=== PATIENT | male | born 1970 | race Caucasian/White ===

== ENCOUNTER 2020-08-09 21:20 | Inpatient (IN) ==
[2020-08-09 21:59] LABS: Basophils % 0.5 %; Eosinophils # 0.3 K/mcL (0.0-0.6); Eosinophils % 3.6 %; Hematocrit 43.5 % (37.5-50.1); Hemoglobin 14.4 g/dL (12.9-16.9); Immature Granulocytes % 0.6 % (0-4); Lymphocytes # 2.4 K/mcL (0.6-4.6); Lymphocytes % 27.7 %; Mean Corpuscular HGB Conc 33.1 g/dL (31.6-35.5); Mean Corpuscular Hemoglobin 30.2 pg (28.0-33.3); Mean Corpuscular Volume 91.2 fL (83.0-100.0); Mean Platelet Volume 9.9 fL (9.4-12.4); Monocytes # 0.7 K/mcL (0.0-1.3); Monocytes % 7.8 %; Neutrophils # 5.2 K/mcL (1.6-8.9); Platelet Count 333 K/mcL (140-400); Red Blood Count 4.77 M/mcL (4.19-5.50); Red Cell Distribution Width 13.6 % (11.5-14.5); Segmented Neutrophils % 59.8 %; White Blood Count 8.6 K/mcL (4.3-11.1)
[2020-08-09 22:18] LABS: Acetaminophen < 10 mcg/mL (10-20); BUN/Creatinine Ratio 19 (6-26); Blood Urea Nitrogen 20 mg/dL (6-20); Calcium 9.1 mg/dL (8.6-10.3); Carbon Dioxide 27 mEq/L (23-29); Chloride 106 mEq/L (98-107); Chol/HDL Ratio 3.2 (0-4.9); Cholesterol 184 mg/dL (< 200); Ethanol < 10 mg/dL (Less than 10); Glucose 137 mg/dL (70-105); HDL Cholesterol 58 mg/dL (40-59); LDL Cholesterol,Calculated 102 mg/dL (< 100); Osmolality,Calculated 293 (280-300); Potassium 3.8 mEq/L (3.5-5.1); Salicylate < 2.5 mg/dL (15.0-30.0); Sodium 139 mEq/L (136-145); Triglycerides 118 mg/dL (< 150); eGFR For African Americans > 60 (> 60); eGFR For Non-African Americans > 60 (> 60)
[2020-08-09 22:39] LABS: Bilirubin,Urine Negative (Negative); Blood,Urine Negative (Negative); Clarity,Urine Clear (Clear); Color,Urine Yellow (Yellow); Glucose,Urine (UA) 70 mg/dL (Normal); Ketones,Urine Negative (Negative); Leukocyte Esterase,Urine Trace (Negative); Nitrite,Urine Negative (Negative); Protein,Urine Trace mg/dL (Neg-Trace); RBC,Urine 0-3 per hpf (0-3); Specific Gravity,Urine > 1.030 (1.010-1.025); Squamous Epithelial Cell,Urine Few per hpf (None-Few); WBC,Urine 15-30 per hpf (0-3)
[2020-08-09 23:09] LABS: Amphetamine Screen,Urine Positive ng/mL (Cutoff=1000); Barbiturate Screen,Urine Negative ng/mL (Cutoff=200); Benzodiazepines Screen,Urine Negative ng/mL (Cutoff=200); Cannabinoid Screen,Urine Positive ng/mL (Cutoff = 50); Cocaine Screen,Urine Negative ng/mL (Cutoff= 300); Opiate Screen,Urine Negative ng/mL (Cutoff=300); Phencyclidine Screen,Urine Negative ng/mL (Cutoff=25)
[2020-08-10] MEDS ORDERED: Acetaminophen 325 MG TABLET PO ONE (13:43)
[2020-08-10 16:11] LABS: Adenovirus Not Detected (Not Detect); Bordetella Pertussis Not Detected (Not Detect); Chlamydophila pneumoniae Not Detected (Not Detect); Coronavirus 229E Not Detected (Not Detect); Coronavirus HKU1 Not Detected (Not Detect); Coronavirus NL63 Not Detected (Not Detect); Coronavirus OC43 Not Detected (Not Detect); Human Metapneumovirus Not Detected (Not Detect); Human Rhinovirus/Enterovirus Not Detected (Not Detect); Influenza A Subtype 2009 H1 Not Detected (Not Detect); Influenza B Not Detected (Not Detect); Mycoplasma pneumoniae Not Detected (Not Detect); Parainfluenza Virus 1 Not Detected (Not Detect); Parainfluenza Virus 2 Not Detected (Not Detect); Parainfluenza Virus 3 Not Detected (Not Detect); Parainfluenza Virus 4 Not Detected (Not Detect); Respiratory Syncytial Virus Not Detected (Not Detect); SARS-CoV-2 Not Detected (Not Detect)
[2020-08-10 17:31] LABS: Estimated Average Glucose 120 mg/dl; Hemoglobin A1C 5.8 %
[2020-08-10] MEDS ORDERED: *HR* LORazepam 1 MG TABLET PO PRN (18:02)
[2020-08-10] MEDS ORDERED: *HR* LORazepam 2 MG/ML VIAL IM PRN (18:02)
[2020-08-10] MEDS ORDERED: MOM Conc 10 ML UD.LIQ PO PRN (18:02)
[2020-08-10] MEDS ORDERED: Mag Hydrox/Al Hydrox/Simeth 30 ML UDC PO PRN (18:02)
[2020-08-10] MEDS ORDERED: traZODone 50 MG TABLET PO PRN (18:02)
[2020-08-10] MEDS ORDERED: Haloperidol Lactate 5 MG/ML VIAL IM PRN (18:02)
[2020-08-10] MEDS ORDERED: haloperidoL 5 MG TABLET PO PRN (18:02)
[2020-08-10] MEDS: hydrOXYzine pamoate 25 MG CAPSULE PO PRN (20:00)
[2020-08-11] MEDS: Acetaminophen 325 MG TABLET PO PRN ×2 (04:13→21:42)
[2020-08-11] MEDS: hydrOXYzine pamoate 25 MG CAPSULE PO PRN (04:14)
[2020-08-11] MEDS: Nicotine 2 MG GUM BC PRN (21:43)
[2020-08-12] MEDS: Ibuprofen 600 MG TABLET PO PRN (11:24)
[2020-08-12] MEDS: Acetaminophen 325 MG TABLET PO PRN (21:00)
[2020-08-12] MEDS: QUEtiapine Fumarate 25 MG TABLET PO SCH (21:00)
[2020-08-13] MEDS: Acetaminophen 325 MG TABLET PO PRN (15:42)
[2020-08-13] MEDS: Nicotine 2 MG GUM BC PRN (20:58)
[2020-08-13] MEDS: QUEtiapine Fumarate 25 MG TABLET PO SCH (20:58)
[2020-08-13] MEDS: hydrOXYzine pamoate 25 MG CAPSULE PO PRN (20:58)
[2020-08-14] MEDS: Nicotine 21 MG PATCH.TD24 TD SCH (09:57)
[2020-08-14] MEDS: hydrOXYzine pamoate 25 MG CAPSULE PO PRN ×2 (11:46→21:05)
[2020-08-14] MEDS ORDERED: QUEtiapine Fumarate 25 MG TABLET PO PRN (21:00)
[2020-08-14] MEDS: Ibuprofen 600 MG TABLET PO PRN (21:05)
[2020-08-14] MEDS: QUEtiapine Fumarate 100 MG TABLET PO SCH (21:05)
[2020-08-15] MEDS: Nicotine 21 MG PATCH.TD24 TD SCH (09:11)
[2020-08-15] MEDS: QUEtiapine Fumarate 100 MG TABLET PO SCH (21:12)
[2020-08-16] MEDS: Nicotine 21 MG PATCH.TD24 TD SCH (08:55)
[2020-08-16] MEDS: hydrOXYzine pamoate 25 MG CAPSULE PO PRN (20:46)
[2020-08-16] MEDS: QUEtiapine Fumarate 100 MG TABLET PO SCH (20:47)
[2020-08-16] MEDS: Ibuprofen 600 MG TABLET PO PRN (20:47)
[2020-08-17 09:28] VITALS: BP 122/69
[2020-08-17] MEDS: Nicotine 21 MG PATCH.TD24 TD SCH (10:12)
== END 2020-08-17 13:10 | disposition home or self-care (01) | DRG 751 ==
LOC: EMEROOARM 21:20 → 1ANU 08-10 17:35
PROVIDERS: ADMIT Psychiatry & Neurology Psychiatry; ATTEND Psychiatry & Neurology Psychiatry